=== PATIENT | male | born 1970 | race Caucasian/White ===

== ENCOUNTER 2023-09-13 08:02 | Outpatient (AMB) | payer OTHER, SELFPAY ==
[2023-09-13 08:28] VITALS: BP 138/72; PULSE 54; TEMP 36.6; O2SAT 94; BMI 53.6
--- NOTE | 2023-09-13 08:28 | AM.OFFWIN_ITS ---
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 Patient complaining of severe sore throat and bilateral ear pain 4 days. patient states he had viral URI symptoms such as congestion/ rhinorrhea, myalgias, headache that began approximately 1 week ago. He states that those symptoms have resolved but he then started to develop a severe sore throat with odynophagia and bilateral ear pain x4 days. He reports swollen neck glands. He denies any significant fevers or chills. He reports fatigue and malaise. He denies any cough or shortness of breath. He denies any chest pain. He denies any abdominal pain or nausea/vomiting / diarrhea. Review of Systems Const All systems reviewed & are unremarkable except as noted in HPI and below Reports no additional complaints Eyes Reports no additional complaints ENT Reports no additional complaints Card Reports no additional complaints Resp Reports no additional complaints GI Reports no additional complaints Reports no additional complaints Musc Reports no additional complaints Skin/Breast Reports system reviewed and no additional complaints, except as documented Neuro Reports no additional complaints Psych Reports no additional complaints Endo Reports no additional complaints Earl/Lymph Reports no additional complaints Aller/Immun Reports no additional complaints Physical Exam Vital Signs: Last Vital Signs Temp 97.9 F 09/13/23 08:28 Pulse 54 09/13/23 08:28 BP 138/72 09/13/23 08:28 Pulse Ox 94 09/13/23 08:28 Oxygen Delivery Method Room Air 09/13/23 08:28 Const Other: Vital signs reviewed. Constitutional: Non-toxic appearing. No acute distress. Well-developed and well-nourished. HEENT: Normocephalic and atraumatic. Significant posterior pharyngeal erythema and scant patchy exudates. Bilateral tympanic membranes without edema or erythema. No evidence of peritonsillar abscess or peritonsillar cellulitis. Skin: Warm and dry. No rashes or lesions noted. Neck: Full and painless range of motion. Boggy anterior cervical lymphaden opathy. Cardio: Regular rate. No lower extremity edema. No JVD. Pulmonary: No respiratory distress. No accessory muscle usage. Gastrointestinal: Soft, nontender, and nondistended in all 4 quadrants. Genitourinary: No CVA tenderness. Musculoskeletal: Normal range of motion in joints throughout the body. No deformity or other signs of injury. Neuro: Alert and oriented x4. Cranial nerves 2-12 grossly intact. No focal deficits appreciated. Psych: Normal mood and affect. Results AMB Rapid Strep AMB Rapid Strep Negative Last Edit by Carrie Cazares CMA on 09/13/23 08:46 Assessment & Plan Assessment & Plan (1) Pharyngitis: Code(s): J02.9 - Acute pharyngitis, unspecified Plan: This is a 53-year-old male who presented to the office complaining of a sore thr oat and bilateral ear pain x4 days in the setting of recent viral URI symptoms. On physical examination, patient has significant posterior pharyngeal erythema with scant patchy exudates and boggy anterior cervical lymphadenopathy. His rapid strep test was negative; however, I am going to treat him for presumed streptococcal pharyngitis given his physical examination Findings. No evidence of peritonsillar mass/abscess, peritonsillar cellulitis, or, unilateral neck swelling. Patient's vital signs are stable, physical exam is otherwise benign, and patient is overall nontoxic appearing. Patient has been sent home on p.o. amoxicillin 500 mg twice daily times 10 days. Recommended symptomatic management including rest, increased fluids, advil/tylenol for pain/fever, salt water gargles, and over the counter throat lozenges. Patient advised to follow up here or go to the emergency room for worsening/persistent symptoms. Patient verbalizes understanding and is in agreement the plan. Medications: New amoxicillin 500 mg PO BID 20 caps 0RF Coding Level of Care Code New Pt Level 3 (15256) Diagnoses Pharyngitis J02.9
== END 2023-09-13 08:58 | disposition home or self-care (01) ==
PROVIDERS: Visit Provider Physician Assistant Medical
DX: J02.9 Acute pharyngitis, unspecified (principal); Z13.9 Encounter for screening, unspecified
CPT/HCPCS: 87880; 99203

== ENCOUNTER 2024-04-10 10:08 | Outpatient (AMB) | payer OTHER, SELFPAY ==
[2024-04-10 10:44] VITALS: BP 132/70; PULSE 76; TEMP 36.8; O2SAT 98; BMI 52.6
--- NOTE | 2024-04-10 10:44 | MHC.OFFWIV ---
Intake Vital Signs 04/10/24 10:44 Height 5 ft 11 in Weight 377 lb BMI 52.6 BP 132/70 Blood Pressure Location Rt brachial Position Sitting Pulse 76 Pulse Source Pulse Oximeter Temp 98.2 F Temp Source Oral Pulse Oximetry (%) 98 Intake Visit Reasons: EP lower back/abdominal pain Intake Note: pt is here for lower back and abd pain Patient Tobacco Use Status: Never used Tobacco Allergies No Known Allergies Allergy (Verified 04/10/24 10:48) Do you need a note to return to daycare/school/sports/work: Yes HPI HPI Comments History of Present Illness Details Patient is a 54-year-old male presenting with right sided low back pain that radiates down the back of his right leg and into his right groin. He describes the pain as sometimes being dull and achy but yesterday he said it was sharp and shooting down the back of his leg and which made it difficult to stand and walk as the pain was worse with standing or walking. 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 He denies a history of sciatica but does state he has had chronic back pain. [facility] Social History Patient Tobacco Use Status: Never used Tobacco Review of Systems Const All systems reviewed & are unremarkable except as noted in HPI and below Physical Exam Vital Signs: Last Vital Signs Temp 98.2 F 04/10/24 10:44 Pulse 76 04/10/24 10:44 BP 132/70 04/10/24 10:44 Pulse Ox 98 04/10/24 10:44 BMI result Body Mass Index 52.6 Const General: cooperative, healthy appearing, comfortable, no acute distress and well developed Orientation/consciousness: patient oriented x3 Limitations: no limitations HEENT Head: Yes normal to inspection Eyes General: appearance normal, both eyes and all related structures Neck Neck: Yes normal visual inspection and Yes full ROM Resp Effort & Inspection: normal respiratory effort and able to speak in complete sentences General: Yes no CVA tenderness Back/Spine/Pelvis Back: no CVA tenderness Cervical Spine: No Cervical spine tenderness Thoracic/Lumbar Spine: pain with thoraco-lumbar ROM, No thoracic spinal tenderness, No lumbar spinal tenderness and straight leg raise positive (right side) Skin General skin exam: no rashes or lesions noted Neuro General: patient oriented x3 Extrem General: Yes normal to inspection Assessment & Plan Assessment & Plan (1) Sciatica: Code(s): M54.30 - Sciatica, unspecified side Qualifiers: Laterality: right Qualified Code(s): M54.31 - Sciatica, right side Plan: Sent prednisone as patient can not take NSAIDs with his Eliquis. Advised to use ice, rest and sciatic exercises. Plan See above Medications: New prednisone 40 mg (2 x 20 mg) PO DAILY 10 tabs 0RF Coding Level of Care Code Est Pt Level 3 (73957) Diagnoses Sciatica of right side M54.31 Laterality: right
== END 2024-04-10 11:24 | disposition home or self-care (01) ==
PROVIDERS: Visit Provider Physician Assistant
DX: M54.31 Sciatica, right side (principal)
CPT/HCPCS: 99213